=== PATIENT | male | born 2000 | race African-American/Black ===

== ENCOUNTER 2022-01-02 14:32 | Emergency (ER) | payer SELFPAY ==
[2022-01-02 15:14] LABS: Bilirubin Negative (Negative); Blood, Urine Negative (Negative); Clarity Clear (Clear); Glucose, Urine (Dipstick) Normal (Negative); Ketone, Urine Negative (Negative); Leukocyte Negative Leu/uL (Negative); Nitrite Negative (Negative); Protein, Urine (Dipstick) Negative (Neg-Trace); Specific Gravity, Urine 1.025 (1.002-1.036); Urobilinogen Normal mg/dL (Less than 2); pH, Urine 6.5 (5.0-9.0)
[2022-01-03 17:39] LABS: Chlam.trachomatis by PCR,Urine Not Detected (NotDetected)
== END 2022-01-02 16:45 | disposition home or self-care (01) ==
LOC: ERS 14:32
DX: R31.9 Hematuria, unspecified (principal)
CPT/HCPCS: 81003; 87491; 87591; 99283